=== PATIENT | female | born 1940 | race Caucasian/White ===

== ENCOUNTER → 2024-01-05 14:21 | Outpatient (REF) | payer MEDICARE, OTHER, SELFPAY | LOC: HWRAD 14:21 | PROVIDERS: ATTENDING PHYSICIAN Nurse Practitioner Family | DX: M25.562 Pain in left knee (principal) | CPT/HCPCS: 73564 ==

== ENCOUNTER 2024-01-23 17:06 | Inpatient (IN) | payer MEDICARE, OTHER, SELFPAY ==
[2024-01-23] VITALS (13 sets, daily range): BP systolic 131–169; BP diastolic 53–79; BMI 29.5; BMI 28.7
--- NOTE | 2024-01-23 07:45 | ED.GENMED ---
History of Present Illness
General
Chief Complaint: Fatigue
Source: patient and family (son at bedside)
Exam Limitations: dementia
Time Seen by Provider: 01/23/24 07:32
History of Present Illness
History of Present Illness:
83 yo female from home w hx of dementia, HTN, HLD, IDDM presents pleasant, smiling, denies pain.
Son at bedside states he typically gets her up in the mornings, gets her dressed, coffee, leaves for work, calls her during the day and she fares pretty well.
Yesterday she didn't answer the phone, he asked neighbor to check on her and she was found on toilet, unable to get up. Neighbor eventually got her up and to bed.
Today same thing, she could not get off the toilet for her son. She fought with him, became shaky and said 'I can't do this.' He called EMS.
He states for past two weeks she's been more forgetful, and less steady on her feet needing help with her balance. Found her walking holding on to wall, asks 'where's your walker' she replied 'what walker?' and when she gets up to use walker says
she needs some time to get her balance.
She has not complained of dizziness. there has been no f/c/n/v/d/c.
Past History
Past History
ED Past Medical History: HTN, Hypercholesterolemia, IDDM and Psychiatric (dementia)
Social History
Tobacco: Non-smoker
Alcohol: None
Personal:
Living: with family
Review of Systems
Review of Systems
Allergies reviewed?: Yes
All Other Systems: ROS reviewed and negative except as documented in HPI and ROS
Constitutional: Denies fever or chills
Respiratory: Denies trouble breathing
Cardiac: Denies chest pain or syncope
ABD/GI: Denies abdominal pain, nausea, vomiting, diarrhea or anorexia
: Denies difficulty voiding
Musculoskeletal: Denies edema
Skin: Reports other (rash in groin area. States pt fights him with attempts to shower. )
Neurological: Denies headache or weakness
Phy Exam
Physical Exam
Physical Exam:
GENERAL: No acute distress. A&O to name, 'hospital' otherwise not oriented
CONSTITUTIONAL: Afebrile.
EYES: Clear, conjunctivae normal
ENMT: moist mucus membranes, Pharynx nl
RESPIRATORY: Regular respirations, nonlabored, lungs clear.
CARDIOVASCULAR: Regular rate and rhythm, no murmurs, no rubs.
GI: Soft, nontender, normal BS
MUSCULOSKELETAL: LLE +1 swollen compared to RLE. Mild erythema both LE's. Tender to palpate Left lower leg and just above the knee. Distal n/v intact.
SKIN: Warm, dry, pink
PSYCH: Pleasant mood and affect. Well kept, poor historian
NEUROLOGIC: Awake, alert and oriented x 1-2. Speech clear. No focal neurological deficits. Follows commands. CN 2-12 intact. Finger to nose intact.
Course
Orders/Labs/Results
Orders:
Orders
01/23/24 07:24
EKG [Electrocardiogram (*1)] Urgent
Reason for Study: Fatigue / Weakness
EKG- Treatment ONCE
01/23/24 07:32
Straight cath- Treatment ONCE
01/23/24 07:58
Complete Blood Count/With Diff Urgent
Comprehensive Metabolic Panel Urgent
Urinalysis Reflex To Culture Urgent
Date Specimen was Collected: 01/23/24
Time Specimen was Collected: 07:56
01/23/24 08:59
CT Head W/o Iv Contrast Urgent
Comment:
Reason For Exam: 'balance problem'
01/23/24 09:00
0.9% Sodium Chloride 1000 ml [Nss] 1,000 ml IV BOLUS
01/23/24 12:14
Case Management Consult ONCE
Case Management Consult: Discharge Planning
Comment: Lives w son, more difficult to ambulate, get off and on toilet, etc.
He works all day and up until yesterday she managed well, prob needs P/T
Physical Therapy Consult [Pt Eval And Treat] Urgent
Treatment: ambulate with walker
Activity Level: As Tolerated
01/23/24 12:21
US Periph Venous LOWER Ext LT Urgent
Comment:
Reason For Exam: swelling, redness
01/23/24 12:42
Acetaminophen [Tylenol] 1,000 mg PO NOW STA
01/23/24 12:47
Acetaminophen [Tylenol] 1,000 mg PO NOW STA
Abnormal Lab Results
01/23/24
07:58
MPV 10.5 H fL
(7.4-10.4)
Absolute Neuts (auto) 6.9 H 10^3/uL
(1.4-6.5)
Absolute Monos (auto) 0.8 H 10^3/uL
(0.1-0.6)
Neutrophils % 75.7 H %
(42.2-75.2)
Lymphocytes % 13.9 L %
(20.5-51.1)
Sodium 129 L mmol/L
(135-145)
Chloride 96 L mmol/L
(98-107)
BUN 19 H mg/dl
(7-17)
Glucose 141 H mg/dl
(70-99)
Calcium 10.3 H mg/dl
(8.4-10.2)
01/23/24 07:58
01/23/24 07:58
Vital Signs
Initial and Last Documented VS:
Initial Vital Signs
BP
143/68
01/23/24 07:23
Last Documented Vital Signs
Temp Pulse Resp BP Pulse Ox
98.7 F 72 16 131/69 94
01/23/24 07:29 01/23/24 16:00 01/23/24 16:00 01/23/24 14:07 01/23/24 08:09
MDM/Problems Addressed
Differential Diagnosis Includes:
UTI, dehydration, progression of dementia
MDM/Problems Addressed:
83 yo female from home w hx of dementia, HTN, HLD, IDDM presents pleasant, smiling, denies pain.
Son at bedside states he typically gets her up in the mornings, gets her dressed, coffee, leaves for work, calls her during the day and she fares pretty well.
Yesterday she didn't answer the phone, he asked neighbor to check on her and she was found on toilet, unable to get up. Neighbor eventually got her up and to bed.
Today same thing, she could not get off the toilet for her son. She fought with him, became shaky and said 'I can't do this.' He called EMS.
He states for past two weeks she's been more forgetful, and less steady on her feet needing help with her balance. Found her walking holding on to wall, asks 'where's your walker' she replied 'what walker?' and when she gets up to use walker says
she needs some time to get her balance.
She has not complained of dizziness. there has been no f/c/n/v/d/c.
Afebrile, NAD, pleasant, demented. Denies pain
EKG: NSR
8:00 a.m.
CBC normal
CMP: Na+ 129, otherwise normal (no comparison labs available) Spoke with Cortney at [facility]: 05/22 Na+ 140, 04/20 Na+ 137
U/A neg
8:45 a.m
Son updated on results
Because of 'difficulty with balance' head CT pending
[address] shows nothing acute
Son informed and Consults for P/T and Case Management
12:00 p.m.
Son informs me that pt is complaining of pain in the LLL. The leg is +1 more swollen than right but son states 'it's always that way.' Both lower legs erythematous again, son states chronic.
Knee xray from 01/04 reviewed, MARLIN, small knee joint effusion
According to son, pt has not had US so will get that to r/o DVT
P/T will have to wait until US result in.
2:25 PM
Ultrasound negative for DVT. Physical therapy and evaluating patient
P/T in, recommends SNF
Case Management notified.
2:45 pm
Case management in. Son states he cannot afford SNF. He wants to make some phone calls before deciding
3:15 p.m.
Slitter Operator in speaking with son who agrees to send to SNF
3:30 p.m.
Case Management requests admit, looking for placement
Hospitalist notified of admission
*Critical Care Note
Total Time (30-74mins, 75-104mins- exclusive of procedures): Not Applicable
ED Attending Note
-
Portions of this chart may have been created with voice recognition software.� Occasional wrong word or��sound alike� substitutions may have occurred due to the inherent limitations of voice recognition software.
Discharge Plan
Departure
Patient Disposition: Admit
Date of Disposition: 01/23/24
Time of Disposition: 15:35
Presentation/result/management discussed w/ accepting MD/DO: Hospitalist
Patient with high blood pressure during this ER visit?: No
Condition: Fair
Discharge Problem:
Chronic pain of left lower extremity, Ambulatory dysfunction
Prescriptions:
No Action
atenolol 50 mg Tablet
50 mg PO DAILY
atorvastatin 20 mg Tablet
20 mg PO DAILY
lisinopril 40 mg Tablet
40 mg PO DAILY
insulin lispro protamin-lispro [Humalog Mix 75-25 KwikPen] 100 unit/mL (75-25) Insulin Pen
50 unit SC BID
Referrals:
UNKNOWN - PT DOES,NOT KNOW [Family Provider] -
Interventions
Interventions:
*Risk Screen - Suicide Last Done: 01/23/24 07:27
*General Assessment Last Done: 01/23/24 07:47
*Neglect/Abuse Screening Last Done: 01/23/24 07:27
*ED COVID-19 Vaccine History Last Done: 01/23/24 07:55
Discharge Date and Time
Print Language: HEBREW
[2024-01-23 08:16] LABS: % Basophils 0.4 % (0-2); % Eosinophils 0.7 % (0-6); % Immature Granulocytes 0.2 % (0-0.5); % Lymphocytes 13.9 % (20.5-51.1); % Monocytes 9.1 % (1.7-9.3); % Neutrophils 75.7 % (42.2-75.2); Absolute Eosinophils 0.1 10^3/uL (0-0.7); Absolute Lymphocytes 1.3 10^3/uL (1.2-3.4); Absolute Monocytes 0.8 10^3/uL (0.1-0.6); Absolute Neutrophils 6.9 10^3/uL (1.4-6.5); Hemoglobin 13.3 g/dL (12.0-16.0); Mean Corpuscular Hgb 29.8 pg (27.0-31.0); Mean Platelet Volume 10.5 fL (7.4-10.4); Nucleated Red Blood Cells % 0 %; Platelet Count 208 10^3/uL (130-400); Red Blood Cell Count 4.47 10^6/uL (4.20-5.40); Red Cell Dist. Width 13.1 % (11.5-14.5); White Blood Cell Count 9.1 10^3/uL (4.8-10.8)
[2024-01-23 08:23] LABS: ALT (SGPT) 24 U/L (0-35); AST (SGOT) 29 U/L (14-36); Albumin 4.2 g/dl (3.5-5.0); Blood Urea Nitrogen 19 mg/dl (7-17); Carbon Dioxide 25 mmol/L (22-30); Estimated Creatinine Clearance 53 ml/min; Glucose 141 mg/dl (70-99); Potassium 4.9 mmol/L (3.5-5.1); Total Bilirubin 1.1 mg/dl (0.2-1.3); Total Protein 6.8 g/dl (6.3-8.2); eGFR > 60.00
[2024-01-23 08:27] LABS: Urine Albumin Negative (Neg - Trace); Urine Bilirubin Negative (Negative); Urine Character Clear (Clear); Urine Color Yellow; Urine Glucose Negative (Negative); Urine Ketone Negative (Negative); Urine Leukocyte Negative (Negative); Urine Nitrite Negative (Negative); Urine Occult Blood Negative (Negative); Urine Specific Gravity 1.015 (<1.030); Urine Urobilinogen Negative (Neg - 1+)
[2024-01-23 08:37] LABS: Alkaline Phosphatase 82 U/L (38-126); Calcium 10.3 mg/dl (8.4-10.2); Chloride 96 mmol/L (98-107); Sodium 129 mmol/L (135-145)
[2024-01-23] MEDS: NSS 1000 IV (09:12)
[2024-01-23] MEDS: TYLENOL 1000 MG PO (12:45)
--- NOTE | 2024-01-23 12:49 | CM ---
Addendum entered by Antonette Piper 01/23/24 17:38:
Late entry:
Patient's son was very tearful saying he had a very bad experience with his father in [place] when he was placed in short term rehab. He does not want the same thing to happen again to his mother. He shared that he was trying to get ahold of
family/siblings in a group chat text, that he had started, but no one was responding back to him.
He shared that he did have the money to place his mother into STR, but only wanted 5-star facilities.
CMRN printed off [facility]'s care home statistics (on Medicare.gov0 and did a 'compare' analysis and handed it to son. He was encouraged to look at the facilities tomorrow, or when he had some time off. He is still working.
He was agreeable to his mother staying until a facility was found. CMRN attempted to explain what private pay would look like and a check would need to be given to whichever facility he choses. He stated, 'I know how this goes! This isn't my first
rodeo! I had to do all of this for my dad!'
Above was shared with ED attending provider.
Addendum entered by Antonette Piper 01/23/24 15:36:
PCP: Dr. Castillo at [facility]
Addendum entered by Antonette Piper 01/23/24 14:58:
CM spoke with patient and son about PT's recommendations. Son stated that he would not be able to afford SNF. Son agreeable to VN coming out to home. CMRN came back to room to inform son and patient that VN would be calling them most likely, on
Friday. Son then asked his mother several times if she wanted home PT or to go to a SNF. CM attempt to clarify if patient and son were able to afford SNF. Son stated, 'Hold on a minute, I need to make 1 or 2 phone calls'.
Attending HEADING REPAIRER made aware.
CM will attempt to go back into room and discuss final plan with son.
Original Note:
CM reviewed patient's chart. CM consult placed. CM introduced self and role. Patient's son also at bedside. CM explained that there was one further test that needed to be completed in regards to patient's painful leg. CM also explained that PT was
ordered, and would be at bedside to evaluate patient. Son and patient verbalized understanding.
--- NOTE | 2024-01-23 16:04 | HPS.HSE ---
Addendum entered and electronically signed by Kirit Frey MD 01/23/24 17:19:
I saw and examined the patient.
The [employer] OFFICER or PA's note was reviewed and I agree with the note.
Comment:
83 years old female presented with ambulatory dysfunction the started to happen the last 2 days. Patient has dementia and significant short-term memory. Son provided history. Son reported that she seemed at her baseline except inability to
ambulate in the last 2 days. Chronic left lower extremity swelling almost 2 years.
Physical Exam
General: Comfortable and Conversant
HEENT: Anicteric and Moist mucous membranes
Respiratory: Non Labored Respirations and Decreased Breath Sounds (Poor inspiratory effort)
Cardiac: S1/S2, Regular Rhythm and Murmur (3/6 Systolic Murmur heard best at left upper sternal border)
GI: Soft and Non Tender
Genito-urinary: Clear Urine
Musculoskeletal: No Clubbing, No Cyanosis and Other (+1 edema RLE; +2 edema LLE)
Skin: Warm and Dry
Neuro: Awake, Alert, Oriented (Self only) and Nonfocal/grossly intact
Psych: Apparent Dementia
#Hyponatremia, mild
Sodium around 129
-Check serum osmo, urine sodium, urine osmo
-Continue fluid restriction with regular diet
No history of low sodium before
No history of seizures or worsening confusion
# Chronic left lower extremity swelling. She has tenderness upon touching her legs. Per son is a chronic and very sensitive skin. No signs of acute infection/cellulitis. Possibly vascular insufficiency that lead to frequent recurrent swelling in
both lower extremities but mostly on the left side.
Continue with as needed Tylenol
Ultrasound, no DVT
#Acute on chronic ambulatory Dysfunction
-Consult PT/OT
-Check Brain MRI
#Diabetes Mellitus, Insulin-Dependent
-Continue Humalog Mix
-Monitor sugars and continue coverage insulin
#Essential Hypertension
-Continue atenolol and lisinopril with hold parameters
Hyperlipidemia
-Continue atorvastatin
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
-Monitor for mood/behavior changes during hospitalizations
DVT proph: Lovenox
Code Status: DNR
Total time spent to see the patient, examine the patient on the floor, review data and lab results, discuss treatment plan with patient and her son, ER doctor, nursing staff around 75 minutes
Original Note:
Family Physician
-
Family Physician: NOT KNOW UNKNOWN - PT DOES
Chief Complaint
-
Weakness
History of Present Illness
Patient is an 83 y/o female with a PMH of dementia, HTN, and DM who presents to the ED for difficulty ambulating. History is limited due to patient's dementia. Patient's son was present at bedside and provided history. Patient lives with her son who
takes care of her. He states that she hasn't had any difficulty getting around until yesterday. She walks with a walker sometimes or uses the wall or nearest object when she forgets to use it. Patient's son states that yesterday he tried calling to
check on her and she didn't respond, so he asked a neighbor to check on her. The neighbor found her on the toilet unable to get up. Patient's son states that this morning he had trouble getting her off the toilet and had to call EMS. He also says
that she has been more forgetful for the past 2 weeks and has been less steady on her feet. Patient denies fever, chills, nausea, vomiting, abdominal pain, diarrhea, constipation, or dysuria.
Medical History
Past Medical History
Past Medical History: Reports Other
Additional Past Medical History:
Diabetes Mellitus, Insulin-Dependent
Essential Hypertension
Hyperlipidemia
Dementia
Past Surgical History: Reports Other (Unknown)
Social History
Tobacco: Non-smoker
Living: With Family
Family History
Family History: Unable to Obtain
Allergies / Home Medications
Allergies reflects when Allergies were last updated in [employer].
Home Medications with original date entered in [employer]
Allergy/Medication List:
Allergies
Allergy/AdvReac Type Severity Reaction Status Date / Time
No Known Allergies Allergy Unverified 01/23/24 08:09
Home Medications
atenolol 50 mg tablet 50 mg PO DAILY 01/23/24
atorvastatin 20 mg tablet 20 mg PO DAILY 01/23/24
insulin lispro protamine-lispro 100 unit/mL (75-25) subcutaneous pen (Humalog Mix 75-25 KwikPen) 50 unit SC BID 01/23/24
lisinopril 40 mg tablet 40 mg PO DAILY 01/23/24
Review of Systems
-
Unable to obtain full review of systems at this time due to: Dementia
Physical Exam
Vital Signs
Vital Signs
Temp Pulse Resp BP Pulse Ox
98.7 F 83 17 131/69 94
01/23/24 07:29 01/23/24 15:30 01/23/24 15:30 01/23/24 14:07 01/23/24 08:09
Physical Exam
General: Comfortable and Conversant
HEENT: Anicteric and Moist mucous membranes
Respiratory: Non Labored Respirations and Decreased Breath Sounds (Poor inspiratory effort)
Cardiac: S1/S2, Regular Rhythm and Murmur (3/6 Systolic Murmur heard best at left upper sternal border)
GI: Soft and Non Tender
Genito-urinary: Clear Urine
Musculoskeletal: No Clubbing, No Cyanosis and Other (+1 edema RLE; +2 edema LLE)
Skin: Warm and Dry
Neuro: Awake, Alert, Oriented (Self only) and Nonfocal/grossly intact
Psych: Apparent Dementia
Laboratory Results
-
01/23/24 07:58
01/23/24 07:58
Laboratory Results
Total Bilirubin 1.1 mg/dl (0.2-1.3) 01/23/24 07:58
AST 29 U/L (14-36) 01/23/24 07:58
ALT 24 U/L (0-35) 01/23/24 07:58
Alkaline Phosphatase 82 U/L (38-126) 01/23/24 07:58
Data Reviewed
-
CT Scan: Report Reviewed by me
Ultrasound: Report Reviewed by me
Lab Data: Labs Reviewed by me
Impression/Plan
-
Hyponatremia, mild
-Check serum osmo, urine sodium, urine osmo
-Continue fluid restriction
Ambulatory Dysfunction
-Consult PT/OT
-Check Brain MRI
Diabetes Mellitus, Insulin-Dependent
-Continue Humalog Mix
-Monitor sugars and continue coverage insulin
Essential Hypertension
-Continue atenolol and lisinopril with hold parameters
Hyperlipidemia
-Continue atorvastatin
Dementia
-Monitor for mood/behavior changes during hospitalizations
DVT proph: Lovenox
Code Status: DNR
--- NOTE | 2024-01-23 16:27 | VNURNOTE ---
Attempted to call son to explain VN services. No answer. Per therapy notes, recommending SNF. Per CM HH referral was placed by her.
[2024-01-23 16:57] LABS: Osmolality Urine 303 mOsm/kg (300-900)
[2024-01-23 17:10] LABS: Urine Sodium 52 mmol/L (30-90)
[2024-01-23 18:00] LABS: Osmolality Serum 276 mOsm/kg (275-300)
[2024-01-23] MEDS: TYLENOL 650 MG PO (20:00)
[2024-01-23 20:04] LABS: Glucose - Point of Care 223 mg/dl (70-99)
[2024-01-23] MEDS: LOVENOX SC (20:36)
[2024-01-23] MEDS: NOVOLOG FLEXPEN 50 UNITS SC (20:45)
[2024-01-24] VITALS: BP 139/59
[2024-01-24 00:29] LABS: Glucose - Point of Care 57 mg/dl (70-99)
[2024-01-24 00:50] LABS: Glucose - Point of Care 73 mg/dl (70-99)
[2024-01-24 01:18] LABS: Glucose - Point of Care 93 mg/dl (70-99)
--- NOTE | 2024-01-24 02:47 | PTCARENOTE ---
Addendum entered by Murray Sharpe RN 01/24/24 07:53:
Pt unable to void encouraged oob with 2 person assist to BSC pt unble to do it.Pt voided on bedpan 150cc only,HOUSEKEEPING ASSOCIATE [employer] application consultant was made aware.Pt was straight cath for 700ml. Plan of care continued.
Original Note:
Pt aaoxself only, son at bedside. HOUSEKEEPING ASSOCIATE [employer] application consultant made aware of it pt family refused lovenox at this time & checked about the insulin orders.Plan of care continued,bedalarm in place.
[2024-01-24 03:11] LABS: Glucose - Point of Care 65 mg/dl (70-99)
[2024-01-24] MEDS: DEXTROSE 50% SYRINGE 12.5 GRAMS IV (03:44)
--- NOTE | 2024-01-24 04:01 | W.PN.UPDATE ---
Update Note
Progress Note Update
Nurse reporting diffuse rash over entire body, patient claiming started after taking Bactrim (no Bactrim administered here?), order placed for PO Benadryl.
[2024-01-24 04:23] LABS: Glucose - Point of Care 119 mg/dl (70-99)
[2024-01-24 06:52] LABS: Glucose - Point of Care 93 mg/dl (70-99)
[2024-01-24 07:15] VITALS: BP 171/114
[2024-01-24 07:37] LABS: Blood Urea Nitrogen 15 mg/dl (7-17); Calcium 9.5 mg/dl (8.4-10.2); Carbon Dioxide 23 mmol/L (22-30); Chloride 99 mmol/L (98-107); Estimated Creatinine Clearance 60 ml/min; Glucose 82 mg/dl (70-99); Potassium 4.2 mmol/L (3.5-5.1); Sodium 130 mmol/L (135-145); eGFR > 60.00
[2024-01-24 08:04] LABS: TSH Reflex To Free T4 1.44 uIU/ml (0.47-4.68)
[2024-01-24] MEDS: NOVOLOG FLEXPEN SC (08:29)
--- NOTE | 2024-01-24 08:33 | W.PN.HOSP.TC ---
Today's Communication/Plan
-
dc planning
Adjusting insulin dose
MRI Brain
PT/OT
Add PRN hydralazine
Assessment / Plan
Assessment / Plan
83 years old female presented with ambulatory dysfunction the started to happen the last 2 days. Patient has dementia and significant short-term memory. Son provided history. Son reported that she seemed at her baseline except inability to
ambulate in the last 2 days. Chronic left lower extremity swelling almost 2 years.
Physical Exam
General: Comfortable and Conversant
HEENT: Anicteric and Moist mucous membranes
Respiratory: Non Labored Respirations and Decreased Breath Sounds (Poor inspiratory effort)
Cardiac: S1/S2, Regular Rhythm and Murmur (3/6 Systolic Murmur heard best at left upper sternal border)
GI: Soft and Non Tender
Genito-urinary: Clear Urine
Musculoskeletal: No Clubbing, No Cyanosis and Other (+1 edema RLE; +2 edema LLE)
Skin: Warm and Dry
Neuro: Awake, Alert, Oriented (Self only) and Nonfocal/grossly intact
Psych: Apparent Dementia
#Hyponatremia, mild
Sodium around 129
AM Na at 130
-serum osmo low normal , urine sodium 52, urine osmo low normal
Normal TSH
-Continue fluid restriction with regular diet
No history of low sodium before
No history of seizures or worsening confusion
# Acute on chronic ambulatory dysfunction
Chronic left lower extremity swelling. She has tenderness upon touching her legs. Per son is a chronic and very sensitive skin. No signs of acute infection/cellulitis. Possibly vascular insufficiency that lead to frequent recurrent swelling in
both lower extremities but mostly on the left side.
Continue with as needed Tylenol
Ultrasound, no DVT
#Acute on chronic ambulatory Dysfunction
-Consult PT/OT
-Check Brain MRI
#Diabetes Mellitus, Insulin-Dependent
- hypoglycemia
will re-adjust her insulin dose
-Monitor sugars and continue coverage insulin
#Essential Hypertension
Uncontrolled, will follow after taking meds and do adjustments
-Continue atenolol and lisinopril with hold parameters
Hyperlipidemia
-Continue atorvastatin
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
-Monitor for mood/behavior changes during hospitalizations
DVT proph: Lovenox
Code Status: DNR
Total time spent to see the patient, examine the patient on the floor, review data and lab results, discuss treatment plan with patient and her son, nursing staff around 55 minutes
Anticipated Discharge: 24 - 48 hours
Subjective/Interval History
-
Date of Service: January 24, 2024
No complaints
Nurse, low blood glucose after receiving insulin last night
Objective Data
-
Labs:
Laboratory Results
01/24/24
06:41
Sodium 130 L
Potassium 4.2
Chloride 99
Carbon Dioxide 23
BUN 15
Creatinine 0.7
Glucose 82
Calcium 9.5
Vital Signs:
Vital Signs
Temp Pulse Resp BP Pulse Ox
98.5 F 102 18 171/114 99
01/24/24 07:15 01/24/24 07:15 01/24/24 07:15 01/24/24 07:15 01/24/24 07:15
I&O
01/23/24 01/24/24 01/25/24
06:59 06:59 06:59
Output Total 700 / 700
Balance -700 / -700
[2024-01-24 08:45] LABS: Glucose - Point of Care 125 mg/dl (70-99)
[2024-01-24 09:20] LABS: Glycohemoglobin (HgbA1c) 7.9 % (4.0-5.6)
[2024-01-24] MEDS: NOVOLOG FLEXPEN-MODERATE RESISTANCE SC (09:40)
[2024-01-24] MEDS: ASPIR LOW (ENTERIC COATED) 81 MG PO (09:42)
[2024-01-24] MEDS: ZESTRIL 40 MG PO (09:42)
[2024-01-24] MEDS: LIPITOR 20 MG PO (09:43)
[2024-01-24] MEDS: TENORMIN 50 MG PO (09:43)
[2024-01-24] MEDS: TYLENOL 650 MG PO (09:46)
--- NOTE | 2024-01-24 11:50 | CM ---
CM updated referrals to [facility] in [place]. CM spoke with patient son, and tt sent to physician.
Plan; SNF pending acceptance
[2024-01-24 13:02] LABS: Glucose - Point of Care 175 mg/dl (70-99)
[2024-01-24] MEDS: NOVOLOG FLEXPEN-MODERATE RESISTANCE 1 UNITS SC (13:30)
[2024-01-24 15:10] VITALS: BP 156/73
[2024-01-24 15:52] VITALS: BP 163/61; PULSE 69; O2SAT 99
[2024-01-24 16:50] LABS: Glucose - Point of Care 255 mg/dl (70-99)
[2024-01-24] MEDS: NOVOLOG FLEXPEN-MODERATE RESISTANCE 5 UNITS SC (17:21)
[2024-01-24] MEDS: LOVENOX 40 MG SC (17:21)
[2024-01-24] MEDS: NOVOLOG MIX 70/30 FLEXPEN 20 UNITS SC (17:41)
[2024-01-24 21:29] LABS: Glucose - Point of Care 175 mg/dl (70-99)
[2024-01-24] MEDS: DESENEX/MITRAZOL/ZEASORB 1 APPLIC TOPICAL (22:20)
[2024-01-24 23:30] VITALS: BP 142/60
[2024-01-25] MEDS: TYLENOL 650 MG PO ×2 (00:41→16:52)
[2024-01-25 03:15] LABS: Glucose - Point of Care 161 mg/dl (70-99)
[2024-01-25 05:53] VITALS: BMI 28.8
[2024-01-25 07:10] VITALS: BP 161/86
[2024-01-25 08:00] LABS: Glucose - Point of Care 165 mg/dl (70-99)
--- NOTE | 2024-01-25 08:59 | W.PN.HOSP.TC ---
Addendum entered and electronically signed by Kirit Frey MD 01/25/24 18:00:
Addendum
Bladder scan reviewed. It seems consistent with chronic elevated post voiding volume but no retention or discomfort. Would try to avoid Mathias in this patient as possible, trial of Flomax.
End
Original Note:
Today's Communication/Plan
-
dc
Assessment / Plan
Assessment / Plan
83 years old female presented with ambulatory dysfunction the started to happen the last 2 days. Patient has dementia and significant short-term memory. Son provided history. Son reported that she seemed at her baseline except inability to
ambulate in the last 2 days. Chronic left lower extremity swelling almost 2 years.
Physical Exam
General: Comfortable and Conversant
HEENT: Anicteric and Moist mucous membranes
Respiratory: Non Labored Respirations and Decreased Breath Sounds (Poor inspiratory effort)
Cardiac: S1/S2, Regular Rhythm and Murmur (3/6 Systolic Murmur heard best at left upper sternal border)
GI: Soft and Non Tender
Genito-urinary: Clear Urine
Musculoskeletal: No Clubbing, No Cyanosis and Other (+1 edema RLE; +2 edema LLE)
Skin: Warm and Dry
Neuro: Awake, Alert, Oriented (Self only) and she followed commands, Nonfocal/grossly intact
Psych: Apparent Dementia
#Hyponatremia, mild
Sodium around 129
AM Na at 130
-serum osmo low normal , urine sodium 52, urine osmo low normal
Normal TSH
-Continue fluid restriction with regular diet
No history of low sodium before
No history of seizures or worsening confusion
# Acute on chronic ambulatory dysfunction
Chronic left lower extremity swelling. She has tenderness upon touching her legs. Per son is a chronic and very sensitive skin. No signs of acute infection/cellulitis. Possibly vascular insufficiency that lead to frequent recurrent swelling in
both lower extremities but mostly on the left side.
Continue with as needed Tylenol
Ultrasound, no DVT
#Acute on chronic ambulatory Dysfunction
-Consulted PT/OT
-MRI brain no acute stroke.
#Diabetes Mellitus, Insulin-Dependent
- No hypoglycemia over night
will re-adjust her insulin dose
-Monitor sugars and continue coverage insulin
#Essential Hypertension
Slightly Uncontrolled, will follow after taking meds and do adjustments
-Continue atenolol and lisinopril with hold parameters
Hyperlipidemia
-Continue atorvastatin
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
-Monitor for mood/behavior changes during hospitalizations
DVT proph: Lovenox
Code Status: DNR
Total time spent to see the patient, examine the patient on the floor, review data and lab results, discuss treatment plan with patient and her son, nursing staff around 57 minutes
Anticipated Discharge: Today
Subjective/Interval History
-
Date of Service: January 25, 2024
No chest pain
No sob
No fevers
Objective Data
-
Vital Signs:
Vital Signs
Temp Pulse Resp BP Pulse Ox
98.1 F 82 16 161/86 95
01/25/24 07:10 01/25/24 07:10 01/25/24 07:10 01/25/24 07:10 01/25/24 07:10
I&O
01/24/24 01/25/24 01/26/24
06:59 06:59 06:59
Intake Total 540 / 540
Output Total 700 / 700 650 / 650
Balance -700 / -700 -110 / -110
[2024-01-25] MEDS: NOVOLOG FLEXPEN-MODERATE RESISTANCE 1 UNITS SC ×2 (09:15→16:54)
[2024-01-25] MEDS: NOVOLOG MIX 70/30 FLEXPEN 20 UNITS SC ×2 (09:16→16:56)
[2024-01-25] MEDS: ASPIR LOW (ENTERIC COATED) 81 MG PO (09:18)
[2024-01-25] MEDS: ZESTRIL 40 MG PO (09:18)
[2024-01-25] MEDS: TENORMIN 50 MG PO (09:24)
[2024-01-25] MEDS: LIPITOR 20 MG PO (09:25)
--- NOTE | 2024-01-25 09:40 | CM ---
Addendum entered by Elaien Sibley 01/25/24 16:25:
Patient son does not want to go to [facility] at this point due to rating, [facility] would have a bed but patient does not feel that he can accept facility. No other facilities have responded.
Addendum entered by Elaine Sibley 01/25/24 10:03:
CM spoke with patient son referrals sent to [facility], [place], [facility], [facility] and [facility] following patient son discussion. CM will continue to follow
Addendum entered by Elaine Sibley 01/25/24 09:41:
call to patient son, VM left requesting call back to discuss options
Original Note:
Updated clinicals sent to [facility], no response. [facility] unable to accept. CM will call to patient son to review options and next steps. Physician updated. CM will continue to follow for discharge planning needs.
Plan; SNF vs home with Vn
[2024-01-25] MEDS: FLOMAX 0.4 MG PO (10:10)
[2024-01-25 12:14] LABS: Glucose - Point of Care 227 mg/dl (70-99)
[2024-01-25] MEDS: NOVOLOG FLEXPEN-MODERATE RESISTANCE 3 UNITS SC (12:29)
[2024-01-25 15:15] VITALS: BP 128/58
[2024-01-25 15:30] VITALS: BP 128/58; PULSE 68; O2SAT 98
[2024-01-25 16:50] LABS: Glucose - Point of Care 184 mg/dl (70-99)
--- NOTE | 2024-01-25 17:20 | PTCARENOTE ---
Received patient this am AAOx1. Pt incontinent of urine. Pt bladder scanned at 12:30 pm for 392 ml of urine. Straight cathed patient for 425 ml. Pt OOB to chair an tolerated well. Pt tolerated diet , however pt has a poor appetite. Pt bladder
scanned at [address] Frey made aware. Pt complained of LLE pain which is chronic. Medicated with 650 mg Tylenol PO with relief. Made patient comfortable. Cont to assess patient status.
[2024-01-25] MEDS: LOVENOX 40 MG SC (17:58)
[2024-01-25 21:35] LABS: Glucose - Point of Care 185 mg/dl (70-99)
[2024-01-25 23:47] VITALS: BP 153/58
[2024-01-26] MEDS: TYLENOL 650 MG PO ×2 (05:38→14:56)
[2024-01-26 05:45] VITALS: BMI 28.4
[2024-01-26 07:13] LABS: Glucose - Point of Care 129 mg/dl (70-99)
[2024-01-26 07:30] VITALS: BP 164/73
[2024-01-26] MEDS: NOVOLOG FLEXPEN-MODERATE RESISTANCE SC (07:30)
--- NOTE | 2024-01-26 07:40 | W.PN.HOSP.TC ---
Today's Communication/Plan
-
Placement pending
Appreciate case management
PT/OT
Assessment / Plan
Assessment / Plan
83 years old female presented with ambulatory dysfunction the started to happen the last 2 days. Patient has dementia and significant short-term memory. Son provided history. Son reported that she seemed at her baseline except inability to
ambulate in the last 2 days. Chronic left lower extremity swelling almost 2 years.
Physical Exam
General: Not in acute distress
HEENT: Normocephalic
Respiratory: Non Labored Respirations and Decreased Breath Sounds (Poor inspiratory effort)
Cardiac: S1/S2, Regular Rhythm and Murmur (3/6 Systolic Murmur heard best at left upper sternal border)
GI: Soft and Non Tender. Positive bowel sounds.
Genito-urinary: Clear Urine
Musculoskeletal: No Cyanosis and Other (+1 edema RLE; +2 edema LLE)
Skin: Warm and Dry
Neuro: Awake, Alert, Oriented (Self only) and she followed commands, Nonfocal/grossly intact
Psych: Apparent Dementia
83 female from home with son developed progressive gait issues, couldn't get up from toilet. MRI brain with no acute stroke, likely deconditioning, will need SNF. Dementia. Chronic right lower extremity edema, better now. DNR.
#Hyponatremia, mild
Sodium around 129
AM Na at 130
-serum osmo low normal , urine sodium 52, urine osmo low normal
Normal TSH
-Continue fluid restriction with regular diet
No history of low sodium before
No history of seizures or worsening confusion
# Acute on chronic ambulatory dysfunction
Chronic left lower extremity swelling. She has tenderness upon touching her legs. Per son is a chronic and very sensitive skin. No signs of acute infection/cellulitis. Possibly vascular insufficiency that lead to frequent recurrent swelling in
both lower extremities but mostly on the left side.
Continue with as needed Tylenol
Ultrasound, no DVT
#Acute on chronic ambulatory Dysfunction
-Consulted PT/OT
-MRI brain no acute stroke.
#Diabetes Mellitus, Insulin-Dependent
- No hypoglycemia over night
-Monitor sugars and continue coverage insulin
#Essential Hypertension
Slightly Uncontrolled, will follow after taking medications and adjustments
-Continue atenolol and lisinopril with hold parameters
Hyperlipidemia
-Continue atorvastatin
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
-Monitor for mood/behavior changes during hospitalizations
DVT Prophylaxis: Lovenox
Code Status: DNR
Anticipated Discharge: 24 - 48 hours
Subjective/Interval History
-
Date of Service: January 26, 2024
Patient was seen and examined. She denied any new symptoms or complaints.
Objective Data
-
Vital Signs:
Vital Signs
Temp Pulse Resp BP Pulse Ox
99.4 F 70 24 153/58 100
01/25/24 23:47 01/25/24 23:47 01/25/24 23:47 01/25/24 23:47 01/25/24 23:47
I&O
01/25/24 01/26/24 01/27/24
06:59 06:59 06:59
Intake Total 540 / 540 240 / 240
Output Total 650 / 650 850 / 850
Balance -110 / -110 -610 / -610
[2024-01-26] MEDS: NOVOLOG MIX 70/30 FLEXPEN 20 UNITS SC (07:45)
[2024-01-26] MEDS: LIPITOR 20 MG PO (09:01)
[2024-01-26] MEDS: ASPIR LOW (ENTERIC COATED) 81 MG PO (09:01)
[2024-01-26] MEDS: ZESTRIL 40 MG PO (09:01)
[2024-01-26] MEDS: TENORMIN 50 MG PO (09:01)
[2024-01-26 11:42] LABS: Glucose - Point of Care 157 mg/dl (70-99)
[2024-01-26] MEDS: NOVOLOG FLEXPEN-MODERATE RESISTANCE 1 UNITS SC (12:32)
--- NOTE | 2024-01-26 14:31 | CM ---
CM met with patient's son today to identify facility(s) that he would consider for transfer. [employer] rating reviewed several times with son looking at detail of facility evaluations.
[facility] bed available and son is agreeable to transfer there. W/C van transport arranged for today at 3:15pm.
[facility] report: [phone]
--- NOTE | 2024-01-26 14:46 | W.DS.TRANS ---
DC Summary - Guest Specialist
-
Discharge Instructions:
Discharge Diagnosis/Procedures Hyponatremia
Acute on chronic ambulatory dysfunction
Diabetes Mellitus, Insulin-Dependent
Essential Hypertension
Hyperlipidemia
Likely Alzheimer dementia
Diet Restrict fluids to 48 oz,Diabetic, Carb
Controlled,Low Fat,Low Cholesterol
Activity As tolerated
Driving Restrictions No driving
Blood Work Recheck CBC, BMP and Magnesium in 1-2 days
Other Services PT,OT
Instructions:
Stand-Alone Forms:
Changes to Home Medications: Yes
Discharge Medications:
DC Medications w/original date entered in [facility]
atenolol 50 mg tablet 50 mg PO DAILY Blood Pressure 01/23/24
atorvastatin 20 mg tablet 20 mg PO DAILY High Cholesterol 01/23/24
lisinopril 40 mg tablet 40 mg PO DAILY Blood Pressure 01/23/24
insulin lispro protamine-lispro 100 unit/mL (75-25) subcutaneous pen (Humalog Mix 75-25 KwikPen) 20 unit (0.2 mL) SC BID Diabetes #0 mL 01/26/24
Home Medication Changes
Insulin was reduced to 20 units subq BID to prevent hypoglycemia
Pending Results: No
Total time spent discharging patient (in min): 38
[2024-01-26 14:53] VITALS: BP 163/83
--- NOTE | 2024-01-26 17:47 | W.DCSUMMARY ---
Discharge Summary
Discharge Data
Date of Admission: 01/23/24
Date of Discharge: 01/26/24
Total time spent discharging patient (in min): 38
-
Pending Results: No
Hospital Course
83 year old female with history of dementia and chronic left lower extremity swelling, presented with ambulatory dysfunction. Patient was found to have mild hyponatremia which improved with PO fluid restriction. Ultrasound of the left lower
extremity showed no Deep Vein Thrombosis. Her CT Head showed no acute changes, but did show, as per radiologist's report, 'mild global parenchymal volume loss with sequelae of moderate chronic small vessel ischemic disease.' MRI Brain was done which
showed, as per radiologist's report:
'IMPRESSION:
1. No MRI evidence for acute infarct or intracranial hemorrhage.
2. Moderate to severe symmetric bilateral temporal lobe volume loss suggesting a severe neurodegenerative disease (probably ALZHEIMER'S DEMENTIA).
3. Severe white matter leukoaraiosis in both cerebral hemispheres.'
Discharge Plan
-
Patient Disposition: Jail/SNF
Discharge Diagnosis/Procedures: Hyponatremia
Acute on chronic ambulatory dysfunction
Diabetes Mellitus, Insulin-Dependent
Essential Hypertension
Hyperlipidemia
Likely Alzheimer dementia
Condition: Fair
Diet: Low Fat, Low Cholesterol, Diabetic, Carb Controlled and Restrict fluids to 48 oz
Activity: As tolerated
Driving Restrictions: No driving
Blood Work: Recheck CBC, BMP and Magnesium in 1-2 days
Other Services: PT and OT
Activity Restrictions/Additional Instructions:
Follow-up with PCP in 1-2 weeks
Referrals:
UNKNOWN - PT DOES,NOT KNOW [Family Provider] -
Additional Discharge Medication Instructions: Insulin was reduced to 20 units subq BID to prevent hypoglycemia
Prescriptions:
Continued
atenolol 50 mg Tablet
50 mg PO DAILY
atorvastatin 20 mg Tablet
20 mg PO DAILY
lisinopril 40 mg Tablet
40 mg PO DAILY
Changed
insulin lispro protamin-lispro [Humalog Mix 75-25 KwikPen] 100 unit/mL (75-25) Insulin Pen
20 unit SC BID Qty: 0 0RF
Discharge Orders:
Discharge Patient (As Directed); Ordered 01/26/24
Ordered By: Andrea Chatterjee
Discharge Date and Time
Discharge Date/Time: 01/26/24 15:45
Print Language: [place]
== END 2024-01-26 15:45 | DRG 641 ==
LOC: 4 EAST ACU 17:06
PROVIDERS: Physician Assistant Medical; Registered Nurse; ADMITTING PHYSICIAN Internal Medicine; ATTENDING PHYSICIAN Hospitalist; EMERGENCY PHYSICIAN Emergency Medicine
DX: E87.1 Hypo-osmolality and hyponatremia (principal); I10 Essential (primary) hypertension; E78.00 Pure hypercholesterolemia, unspecified; F02.80 Dementia in other diseases classified elsewhere, unspecified severity, without behavioral disturbance, psychotic disturbance, mood disturbance, and anxiety; G30.9 Alzheimer's disease, unspecified; G89.29 Other chronic pain; R26.2 Difficulty in walking, not elsewhere classified; M79.605 Pain in left leg; M79.89 Other specified soft tissue disorders; E11.649 Type 2 diabetes mellitus with hypoglycemia without coma; Z66 Do not resuscitate; Z79.4 Long term (current) use of insulin
CPT/HCPCS: 51701; 70450; 70551; 80048; 80053; 81003; 82962; 83036; 83930; 83935; 84300; 84443; 85025; 93005; 93971; 96360; 97167; 97530; 99285

== ENCOUNTER → 2024-01-28 10:48 | Outpatient (REF) | payer MEDICARE, OTHER, SELFPAY ==
[2024-01-28 12:40] LABS: % Basophils 0.5 % (0-2); % Eosinophils 1.1 % (0-6); % Immature Granulocytes 0.4 % (0-0.5); % Lymphocytes 15.1 % (20.5-51.1); % Monocytes 8.5 % (1.7-9.3); % Neutrophils 74.4 % (42.2-75.2); Absolute Eosinophils 0.1 10^3/uL (0-0.7); Absolute Lymphocytes 1.2 10^3/uL (1.2-3.4); Absolute Monocytes 0.7 10^3/uL (0.1-0.6); Absolute Neutrophils 6.1 10^3/uL (1.4-6.5); Hematocrit 39.3 % (37.0-47.0); Hemoglobin 13.7 g/dL (12.0-16.0); Mean Corp Hgb Conc. 34.9 g/dL (33.0-37.0); Mean Corpuscular Hgb 30.4 pg (27.0-31.0); Mean Corpuscular Volume 87.1 fL (81.0-99.0); Mean Platelet Volume 11.4 fL (7.4-10.4); Nucleated Red Blood Cells % 0 %; Platelet Count 180 10^3/uL (130-400); Red Blood Cell Count 4.51 10^6/uL (4.20-5.40); Red Cell Dist. Width 13.3 % (11.5-14.5); White Blood Cell Count 8.1 10^3/uL (4.8-10.8)
[2024-01-28 13:20] LABS: Blood Urea Nitrogen 16 mg/dl (7-17); Calcium 9.3 mg/dl (8.4-10.2); Carbon Dioxide 23 mmol/L (22-30); Chloride 100 mmol/L (98-107); Glucose 151 mg/dl (70-99); Magnesium 1.4 mg/dl (1.6-2.3); Potassium 4.5 mmol/L (3.5-5.1); Sodium 130 mmol/L (135-145); eGFR > 60.00
== END ==
LOC: OLABP 10:48
PROVIDERS: ATTENDING PHYSICIAN Family Medicine
DX: M62.81 Muscle weakness (generalized) (principal); I10 Essential (primary) hypertension; E11.9 Type 2 diabetes mellitus without complications; E87.1 Hypo-osmolality and hyponatremia; M62.59 Muscle wasting and atrophy, not elsewhere classified, multiple sites
CPT/HCPCS: 36415; 80048; 83735; 85025

== ENCOUNTER → 2024-01-30 10:42 | Outpatient (REF) | payer OTHER, MEDICARE, SELFPAY ==
[2024-01-30 11:54] LABS: % Basophils 0.4 % (0-2); % Eosinophils 1.1 % (0-6); % Immature Granulocytes 0.5 % (0-0.5); % Lymphocytes 14.9 % (20.5-51.1); % Monocytes 10.1 % (1.7-9.3); Absolute Eosinophils 0.1 10^3/uL (0-0.7); Absolute Immature Granulocytes 0.1 10^3/uL (0-0.05); Absolute Lymphocytes 1.4 10^3/uL (1.2-3.4); Absolute Neutrophils 6.8 10^3/uL (1.4-6.5); Hematocrit 37.2 % (37.0-47.0); Mean Corp Hgb Conc. 34.9 g/dL (33.0-37.0); Mean Corpuscular Hgb 30.2 pg (27.0-31.0); Mean Corpuscular Volume 86.3 fL (81.0-99.0); Nucleated Red Blood Cells % 0 %; Platelet Count 222 10^3/uL (130-400); Red Blood Cell Count 4.31 10^6/uL (4.20-5.40); Red Cell Dist. Width 13.2 % (11.5-14.5); White Blood Cell Count 9.4 10^3/uL (4.8-10.8)
[2024-01-30 12:27] LABS: Blood Urea Nitrogen 22 mg/dl (7-17); Calcium 9.3 mg/dl (8.4-10.2); Carbon Dioxide 24 mmol/L (22-30); Chloride 100 mmol/L (98-107); Glucose 161 mg/dl (70-99); Potassium 4.7 mmol/L (3.5-5.1); Sodium 131 mmol/L (135-145); eGFR > 60.00
== END ==
LOC: OLABP 10:42
PROVIDERS: ATTENDING PHYSICIAN Family Medicine
DX: M62.81 Muscle weakness (generalized) (principal); I10 Essential (primary) hypertension; E11.9 Type 2 diabetes mellitus without complications; E87.1 Hypo-osmolality and hyponatremia; M62.59 Muscle wasting and atrophy, not elsewhere classified, multiple sites
CPT/HCPCS: 36415; 80048; 85025

== ENCOUNTER → 2024-02-06 11:35 | Outpatient (REF) | payer OTHER, MEDICARE, SELFPAY ==
[2024-02-06 12:08] LABS: % Basophils 0.3 % (0-2); % Eosinophils 0.1 % (0-6); % Immature Granulocytes 0.7 % (0-0.5); % Monocytes 14.3 % (1.7-9.3); % Neutrophils 73.6 % (42.2-75.2); Absolute Immature Granulocytes 0.1 10^3/uL (0-0.05); Absolute Lymphocytes 0.8 10^3/uL (1.2-3.4); Absolute Neutrophils 5.2 10^3/uL (1.4-6.5); Hematocrit 39.3 % (37.0-47.0); Hemoglobin 13.4 g/dL (12.0-16.0); Mean Corp Hgb Conc. 34.1 g/dL (33.0-37.0); Mean Corpuscular Hgb 30.2 pg (27.0-31.0); Mean Corpuscular Volume 88.5 fL (81.0-99.0); Mean Platelet Volume 10.5 fL (7.4-10.4); Nucleated Red Blood Cells % 0 %; Platelet Count 242 10^3/uL (130-400); Red Blood Cell Count 4.44 10^6/uL (4.20-5.40); Red Cell Dist. Width 13.3 % (11.5-14.5); White Blood Cell Count 7.1 10^3/uL (4.8-10.8)
[2024-02-06 12:36] LABS: ALT (SGPT) 16 U/L (0-35); AST (SGOT) 19 U/L (14-36); Albumin 3.6 g/dl (3.5-5.0); Alkaline Phosphatase 89 U/L (38-126); Blood Urea Nitrogen 38 mg/dl (7-17); Calcium 9.7 mg/dl (8.4-10.2); Carbon Dioxide 22 mmol/L (22-30); Chloride 103 mmol/L (98-107); Glucose 129 mg/dl (70-99); Potassium 4.4 mmol/L (3.5-5.1); Sodium 133 mmol/L (135-145); Total Bilirubin 0.6 mg/dl (0.2-1.3); Total Protein 6.1 g/dl (6.3-8.2); eGFR > 60.00
== END ==
LOC: OLABP 11:35
PROVIDERS: ATTENDING PHYSICIAN Family Medicine
DX: M62.81 Muscle weakness (generalized) (principal); I10 Essential (primary) hypertension; E11.9 Type 2 diabetes mellitus without complications; E87.1 Hypo-osmolality and hyponatremia; M62.59 Muscle wasting and atrophy, not elsewhere classified, multiple sites
CPT/HCPCS: 36415; 80053; 85025

== ENCOUNTER → 2024-02-16 11:42 | Outpatient (REF) | payer OTHER, MEDICARE, SELFPAY ==
[2024-02-16 11:57] LABS: % Basophils 0.3 % (0-2); % Eosinophils 0.8 % (0-6); % Immature Granulocytes 1.5 % (0-0.5); % Lymphocytes 10.8 % (20.5-51.1); % Monocytes 10.3 % (1.7-9.3); % Neutrophils 76.3 % (42.2-75.2); Absolute Eosinophils 0.1 10^3/uL (0-0.7); Absolute Immature Granulocytes 0.2 10^3/uL (0-0.05); Absolute Lymphocytes 1.5 10^3/uL (1.2-3.4); Absolute Monocytes 1.5 10^3/uL (0.1-0.6); Absolute Neutrophils 10.8 10^3/uL (1.4-6.5); Hematocrit 36.9 % (37.0-47.0); Hemoglobin 12.8 g/dL (12.0-16.0); Mean Corp Hgb Conc. 34.7 g/dL (33.0-37.0); Mean Corpuscular Hgb 29.5 pg (27.0-31.0); Mean Platelet Volume 12.2 fL (7.4-10.4); Nucleated Red Blood Cells % 0 %; Platelet Count 193 10^3/uL (130-400); Red Blood Cell Count 4.34 10^6/uL (4.20-5.40); Red Cell Dist. Width 13.3 % (11.5-14.5); White Blood Cell Count 14.2 10^3/uL (4.8-10.8)
== END ==
LOC: OLABP 11:42
PROVIDERS: ATTENDING PHYSICIAN Family Medicine
DX: I10 Essential (primary) hypertension (principal); E11.9 Type 2 diabetes mellitus without complications; E87.1 Hypo-osmolality and hyponatremia; M62.59 Muscle wasting and atrophy, not elsewhere classified, multiple sites
CPT/HCPCS: 85025

== ENCOUNTER → 2024-02-18 12:25 | Outpatient (REF) | payer OTHER, MEDICARE, SELFPAY ==
[2024-02-18 13:32] LABS: % Basophils 0.2 % (0-2); % Eosinophils 0.3 % (0-6); % Immature Granulocytes 1.6 % (0-0.5); % Lymphocytes 11.2 % (20.5-51.1); % Monocytes 7.8 % (1.7-9.3); % Neutrophils 78.9 % (42.2-75.2); Absolute Eosinophils 0.1 10^3/uL (0-0.7); Absolute Immature Granulocytes 0.3 10^3/uL (0-0.05); Absolute Lymphocytes 1.9 10^3/uL (1.2-3.4); Absolute Monocytes 1.3 10^3/uL (0.1-0.6); Absolute Neutrophils 13.4 10^3/uL (1.4-6.5); Hematocrit 34.7 % (37.0-47.0); Hemoglobin 11.9 g/dL (12.0-16.0); Mean Corp Hgb Conc. 34.3 g/dL (33.0-37.0); Mean Corpuscular Hgb 30.5 pg (27.0-31.0); Mean Platelet Volume 12.6 fL (7.4-10.4); Nucleated Red Blood Cells % 0 %; Platelet Count 205 10^3/uL (130-400); Red Cell Dist. Width 13.5 % (11.5-14.5)
[2024-02-18 14:19] LABS: Blood Urea Nitrogen 71 mg/dl (7-17); Calcium 9.1 mg/dl (8.4-10.2); Carbon Dioxide 22 mmol/L (22-30); Chloride 103 mmol/L (98-107); Glucose 85 mg/dl (70-99); Potassium 4.8 mmol/L (3.5-5.1); Sodium 133 mmol/L (135-145); eGFR 40.55
== END ==
LOC: OLABP 12:25
PROVIDERS: ATTENDING PHYSICIAN Family Medicine
DX: M62.81 Muscle weakness (generalized) (principal); I10 Essential (primary) hypertension; E11.9 Type 2 diabetes mellitus without complications; E87.1 Hypo-osmolality and hyponatremia; M62.59 Muscle wasting and atrophy, not elsewhere classified, multiple sites
CPT/HCPCS: 36415; 80048; 85025